=== PATIENT | female | born 1935 | race Caucasian/White ===

== ENCOUNTER 2021-01-31 07:51 | Inpatient (IN) | payer MEDICARE, OTHER ==
[~2021-01-31] VITALS: Ht 165.1 cm; Wt 58.9 kg
[~2021-01-31 07:51] MED LIST: MULT-208 PO
[2021-01-31] MEDS ORDERED: IV NORMAL SALINE 1,000ML 1,000 ML IV ONE (08:00)
[2021-01-31] MEDS ORDERED: ONDANSETRON PF 4 MG/2 ML VIAL. IVP ONE ×2 (08:30→10:00)
[2021-01-31] MEDS ORDERED: IOHEXOL 300 MG/ML 75 ML VIAL. IV ONE (08:30)
[2021-01-31] MEDS ORDERED: FAMOTIDINE 20 MG/2 ML VIAL IVP ONE (08:30)
[2021-01-31] MEDS ORDERED: CONTRAST GIVEN. MC PRN (08:30)
[2021-01-31 08:46] LABS: BASO % 0 % (0-3); EOS # 0.2 x10^3/uL (0.0-0.7); EOS % 4 % (0-3); HEMATOCRIT 46.1 % (36.0-47.0); HEMOGLOBIN 15.1 g/dL (12.0-15.5); LYMPH # 1.6 x10^3/uL (1.0-4.8); LYMPH % 31 % (24-48); MEAN CORPUSCULAR HEMOGLOBIN 30 pg (25-35); MEAN CORPUSCULAR HGB CONC 33 g/dL (31-37); MEAN CORPUSCULAR VOLUME 90 fL (79-100); MONO # 0.4 x10^3/uL (0.0-1.1); MONO % 8 % (0-9); NEUT # 2.8 x10^3uL (1.8-7.7); NEUT % 57 % (31-73); PLATELET COUNT 213 x10^3/uL (140-400); RED BLOOD COUNT 5.13 x10^6/uL (3.50-5.40); RED CELL DISTRIBUTION WIDTH 14.8 % (11.5-14.5)
[2021-01-31 08:47] LABS: ANION GAP 10 (6-14); BLOOD UREA NITROGEN 16 mg/dL (7-20); BUN/CREATININE RATIO 23 (6-20); CALCIUM 9.3 mg/dL (8.5-10.1); CARBON DIOXIDE 27 mmol/L (21-32); CHLORIDE 106 mmol/L (98-107); CREATININE 0.7 mg/dL (0.6-1.0); GFR 79.7; GLUCOSE 116 mg/dL (70-99); POTASSIUM 4.5 mmol/L (3.5-5.1); SODIUM 143 mmol/L (136-145)
[2021-01-31 09:01] LABS: ALBUMIN 3.5 g/dL (3.4-5.0); ALBUMIN/GLOBULIN RATIO 1.1 (1.0-1.7); ALK PHOS 48 U/L (46-116); ALT (SGPT) 19 U/L (14-59); AST (SGOT) 13 U/L (15-37); LIPASE 82 U/L (73-393); TOTAL BILIRUBIN 0.5 mg/dL (0.2-1.0); TOTAL PROTEIN 6.6 g/dL (6.4-8.2)
--- NOTE | 2021-01-31 09:37 | EKG ---
[address] [address] Test Date: 2021-01-31 Test Time: 08:30:07 Pat Name: JENIFFER MONTES Department: Room: Gender: F [employer] Site Manager: ALEXANDRA : [id number] Requested By: RAFFY CROOKS Order Number: [id number] Reading MD: Measurements Intervals Rumely Rate: 79 P: 51 ID: [id number] QRS: 7 QRSD: 138 T: 151 QT: 392 QTc: 451 Interpretive Statements SINUS RHYTHM CONSIDER WPW, TYPE B QRS(T) CONTOUR ABNORMALITY CONSIDER ANTEROSEPTAL MYOCARDIAL DAMAGE ST & T ABNORMALITY, CONSIDER LATERAL ISCHEMIA OR LEFT VENTRICULAR STRAIN T ABNORMALITY IN INFERIOR LEADS ABNORMAL ECG RI6.02 No previous ECG available for comparison
[2021-01-31 09:41] LABS: BACTERIA,URINE MANY /HPF (0-FEW); BILIRUBIN,URINE NEG (NEG); CLARITY,URINE HAZY; COLOR,URINE YELLOW; GLUCOSE,URINE NEG (NEG); NITRITE,URINE POS (NEG); RBC,URINE RARE /HPF (0-2); SQUAMOUS EPITHELIAL CELL,UR FEW /LPF; UROBILINOGEN,URINE 0.2 mg/dL (0.2 mg/dL); WBC,URINE OCC /HPF (0-4)
[2021-01-31] MEDS ORDERED: MECLIZINE 12.5 MG TABLET. PO ONE (09:45)
[2021-01-31] MEDS ORDERED: IV NORMAL SALINE 50ML 50 ML ONE (09:58)
[2021-01-31] MEDS ORDERED: cefTRIAXone SODIUM 1 GM VIAL ONE (09:59)
--- NOTE | 2021-01-31 10:27 | RAD ---
EXAM: CT Abdomen and Pelvis with IV contrast INDICATION: Reason: abdominal pain, N/V ONMI 300 75CC / Spl. Instructions: / History: TECHNIQUE: Multi-detector row CT images were acquired from the lung bases through the abdomen and pel vis with the use of IV contrast. Sagittal and coronal images were acquired from the transaxial data. All CT scans performed at this facility utilize dose optimization techniques as appropriate to the ex am, including the following: Automated exposure control and adjustment of the mA and/or KV according to patient size (this includes techniques or standardized protocols for targeted exams where dose is indication/reason for exam). IV CONTRAST: Administered ORAL CONTRAST: None COMPARISON: Abdomen CT with IV contrast 08/15/2014 FINDINGS: LOWER CHEST: Moderate hiatal hernia, with postsurgical changes near the diaphragmatic hiatus and in t he left upper quadrant abdomen. The hernia sac contains an air-fluid level.. LIVER: Unremarkable BILIARY SYSTEM: Gallbladder is unremarkable. Bile ducts are not dilated. PANCREAS: Unremarkable SPLEEN: Unremarkable ADRENALS: Unremarkable KIDNEYS & URETERS: Unremarkable BLADDER: Unremarkable REPRODUCTIVE ORGANS: Hysterectomy GASTROINTESTINAL: No findings of bowel obstruction or perforation and no findings of acute inflammati on. There is extensive colonic diverticulosis and a right inguinal hernia containing loop of bowel, l ikely small bowel. The appendix is normal. MESENTERY/PERITONEUM/RETROPERITONEUM: Unremarkable VASCULAR: Abdominal aorta ectasia to 2.2 cm, with scattered calcifications. 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 L3 chronic compression fra cture with approximately 50 percent loss of height and leftward convexity scoliotic curvature apex at L4-5 is noted. IMPRESSION: 1. There is a bowel containing right inguinal hernia and shows no findings of acute inflammation or o f upstream obstruction. 2. Moderate size hiatal hernia with an air-fluid level in the hernia sac. This could reflect delayed emptying of the hernia sac in the setting of stenosis of partial obstruction, versus some reflux. An upper GI series could be pursued in further evaluation if clinically warranted. No evidence of bowel perforation. Electronically signed by: Tamra Fernandez MD (01/31/2021 10:25 AM) [id number]
--- NOTE | 2021-01-31 10:59 | RAD ---
CT brain without contrast. HISTORY: Dizziness CT scan of brain was done without contrast although the patient had contrast earlier for CT of the ab domen pelvis. Sinuses are clear. A skull fracture is not identified. There is mild diffuse atrophy. V entricles are normal in size. There is no mass effect or shift of the midline. There is extensive dec reased density in the periventricular white matter from chronic microvascular changes. There are old lacunar infarcts in the basal ganglia on both sides. There is no intracranial hemorrhage or subdural hematoma. IMPRESSION: 1. Atrophy and chronic migraine white matter changes. 2. Old lacunar infarcts. 3. No intracranial hemorrhage or acute finding. PQRS Compliance Statement: One or more of the following individualized dose reduction techniques were utilized for this examinat ion: 1. Automated exposure control 2. Adjustment of the mA and/or kV according to patient size 3. Use of iterative reconstruction technique Electronically signed by: Luiz Isaac MD (01/31/2021 10:57 AM) [id number]
--- NOTE | 2021-01-31 11:05 | PHYS DOC ---
Past History Past Medical History: COPD, Dementia, Depression, GERD, Hypertension, TIA Past Medical History Limited secondary to dementia Past Surgical History: Appendectomy, Hysterectomy, Tonsillectomy Additional Past Surgical Histo: Hiatal hernia surgery Past Surgical History Limited secondary to dementia Alcohol Use: None Drug Use: None Social History Limited secondary to dementia General Adult EDM: Chief Complaint: NAUSEA/VOMITING/DIARRHEA HPI: HPI: 85-year-old female with past medical history of dementia presents via EMS with complaint of dizziness with associated nausea/vomiting and abdominal pain that started at 0630. Patient reportedly had been seen at [facility] in the emergency department x2 previously and was diagnosed with "dehydration". Denies any fever or chills. Denies known exposure to COVID-19. History obtained partially from patient's daughter. History of present illness limited secondary to dementia. Review of Systems: Review of Systems: Constitutional: Denies fever or chills; reports generalized malaise Respiratory: Denies cough or shortness of breath Cardiovascular: Denies chest pain or palpitations GI: Reports abdominal pain, nausea, and vomiting : Denies dysuria or hematuria Integument: Denies rash or skin lesions Neurologic: Denies headache; reports lightheadedness Review of systems limited secondary to dementia. Current Medications: Current Meds: Current Medications Medications (Trade) Dose Ordered Sig/Ingris Start Time Stop Time Status Last Admin Dose Admin Ceftriaxone Sodium 1 gm/ Sodium Chloride 50 ml @ 100 mls/hr 1X ONCE 01/31/21 10:00 01/31/21 10:29 DC 01/31/21 10:11 100 MLS/HR Ceftriaxone Sodium (Rocephin) 1 gm STK-MED ONCE 01/31/21 09:59 01/31/21 09:59 DC Famotidine (Pepcid Vial) 20 mg 1X ONCE 01/31/21 08:30 01/31/21 08:31 DC 01/31/21 08:30 20 MG Info (Do NOT chart on this entry -- for MONITORING) 1 each PRN DAILY PRN 01/31/21 08:30 02/02/21 08:29 Iohexol (Omnipaque 300 Mg/ml) 75 ml 1X ONCE 01/31/21 08:30 01/31/21 08:31 DC 01/31/21 09:07 75 ML Meclizine HCl (Antivert) 25 mg 1X ONCE 01/31/21 09:45 01/31/21 09:46 DC 01/31/21 09:39 25 MG Ondansetron HCl (Zofran) 4 mg 1X ONCE 01/31/21 10:00 01/31/21 10:01 DC 01/31/21 10:00 4 MG Sodium Chloride 50 ml @ As Directed STK-MED ONCE 01/31/21 09:58 01/31/21 09:59 DC Allergies: Allergies: Allergies Coded Allergies Type Severity Reaction Last Updated Verified Penicillins Allergy Unknown 08/15/14 Yes Physical Exam: PE: Constitutional: Well developed, well nourished, ill but non-toxic appearance HENT: Normocephalic, atraumatic Eyes: Conjunctiva normal, no discharge Neck: Normal range of motion, no tenderness, supple Lungs & Thorax: No respiratory distress, equal chest rise and fall Abdomen: Soft, no tenderness, no guarding/rebound tenderness Skin: Warm, dry, no erythema, no rash Back: No tenderness, no CVA tenderness Extremities: No tenderness, ROM intact, no edema Neurologic: Alert and oriented X name, normal motor function, normal sensory function, no focal deficits noted Psychologic: Affect normal, judgment abnormal Current Patient Data: Labs: Laboratory Tests Test 01/31/21 08:12 01/31/21 08:52 White Blood Count 5.0 x10^3/uL (4.0-11.0) Red Blood Count 5.13 x10^6/uL (3.50-5.40) Hemoglobin 15.1 g/dL (12.0-15.5) Hematocrit 46.1 % (36.0-47.0) Mean Corpuscular Volume 90 fL (79-100) Mean Corpuscular Hemoglobin 30 pg (25-35) Mean Corpuscular Hemoglobin Concent 33 g/dL (31-37) Red Cell Distribution Width 14.8 % (11.5-14.5) H Platelet Count 213 x10^3/uL (140-400) Neutrophils (%) (Auto) 57 % (31-73) Lymphocytes (%) (Auto) 31 % (24-48) Monocytes (%) (Auto) 8 % (0-9) Eosinophils (%) (Auto) 4 % (0-3) H Basophils (%) (Auto) 0 % (0-3) Neutrophils # (Auto) 2.8 x10^3uL (1.8-7.7) Lymphocytes # (Auto) 1.6 x10^3/uL (1.0-4.8) Monocytes # (Auto) 0.4 x10^3/uL (0.0-1.1) Eosinophils # (Auto) 0.2 x10^3/uL (0.0-0.7) Basophils # (Auto) 0.0 x10^3/uL (0.0-0.2) Sodium Level 143 mmol/L (136-145) Potassium Level 4.5 mmol/L (3.5-5.1) Chloride Level 106 mmol/L (98-107) Carbon Dioxide Level 27 mmol/L (21-32) Anion Gap 10 (6-14) Blood Urea Nitrogen 16 mg/dL (7-20) Creatinine 0.7 mg/dL (0.6-1.0) Estimated GFR (Cockcroft-Gault) 79.7 BUN/Creatinine Ratio 23 (6-20) H Glucose Level 116 mg/dL (70-99) H Calcium Level 9.3 mg/dL (8.5-10.1) Total Bilirubin 0.5 mg/dL (0.2-1.0) Aspartate Amino Transferase (AST) 13 U/L (15-37) L Alanine Aminotransferase (ALT) 19 U/L (14-59) Alkaline Phosphatase 48 U/L (46-116) Creatine Kinase 36 U/L (26-192) Creatine Kinase MB (Mass) 0.6 ng/mL (0.0-3.6) Creatine Kinase MB Relative Index % (0-4) Troponin I Quantitative < 0.017 ng/mL (0-0.055) Total Protein 6.6 g/dL (6.4-8.2) Albumin 3.5 g/dL (3.4-5.0) Albumin/Globulin Ratio 1.1 (1.0-1.7) Lipase 82 U/L (73-393) Urine Collection Type Unknown Urine Color Yellow Urine Clarity Hazy Urine pH 8.0 Urine Specific [place] 1.020 Urine Protein Neg (NEG-TRACE) Urine Glucose (UA) Neg mg/dL (NEG) Urine Ketones (Stick) Neg mg/dL (NEG) Urine Blood Small (NEG) Urine Nitrite Pos (NEG) Urine Bilirubin Neg (NEG) Urine Urobilinogen Dipstick 0.2 mg/dL (0.2 mg/dL) Urine Leukocyte Esterase Neg (NEG) Urine RBC Rare /HPF (0-2) Urine WBC Occ /HPF (0-4) Urine Squamous Epithelial Cells Few /LPF Urine Bacteria Many /HPF (0-FEW) Vital Signs: Vital Signs Date Time Temp Pulse Resp B/P (MAP) Pulse Ox O2 Delivery O2 Flow Rate FiO2 01/31/21 09:25 82 17 133/48 (76) 99 01/31/21 08:30 Nasal Cannula 2.0 01/31/21 07:52 98.2 EKG: EKG: @0830 NSR at 79bpm, wide complex QRS at 138ms, NO ST elevation, QT/QTc 392/451ms Radiology/Procedures: Radiology/Procedures: PROCEDURE: CT ABD PELV W/ IV CONTRST ONLY EXAM: CT Abdomen and Pelvis with IV contrast INDICATION: Reason: abdominal pain, N/V ONMI 300 75CC / Spl. Instructions: / History: TECHNIQUE: Multi-detector row CT images were acquired from the lung bases through the abdomen and pelvis with the use of IV contrast. Sagittal and coronal images were acquired from the transaxial data. All CT scans performed at this facility utilize dose optimization techniques as appropriate to the exam, including the following: Automated exposure control and adjustment of the mA and/or KV according to patient size (this includes techniques or standardized protocols for targeted exams where dose is indication/reason for exam). IV CONTRAST: Administered ORAL CONTRAST: None COMPARISON: Abdomen CT with IV contrast 08/15/2014 FINDINGS: LOWER CHEST: Moderate hiatal hernia, with postsurgical changes near the diaphrag matic hiatus and in the left upper quadrant abdomen. The hernia sac contains an air-fluid level.. LIVER: Unremarkable BILIARY SYSTEM: Gallbladder is unremarkable. Bile ducts are not dilated. PANCREAS: Unremarkable SPLEEN: Unremarkable ADRENALS: Unremarkable KIDNEYS & URETERS: Unremarkable BLADDER: Unremarkable REPRODUCTIVE ORGANS: Hysterectomy GASTROINTESTINAL: No findings of bowel obstruction or perforation and no findings of acute inflammation. There is extensive colonic diverticulosis and a right inguinal hernia containing loop of bowel, likely small bowel. The appendix is normal. MESENTERY/PERITONEUM/RETROPERITONEUM: Unremarkable VASCULAR: Abdominal aorta ectasia to 2.2 cm, with scattered calcifications. 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 L3 chronic compression fracture with approximately 50 percent loss of height and leftward convexity scoliotic curvature apex at L4-5 is noted. IMPRESSION: 1. There is a bowel containing right inguinal hernia and shows no findings of acute inflammation or of upstream obstruction. 2. Moderate size hiatal hernia with an air-fluid level in the hernia sac. This could reflect delayed emptying of the hernia sac in the setting of stenosis of partial obstruction, versus some reflux. An upper GI series could be pursued in further evaluation if clinically warranted. No evidence of bowel perforation. Electronically signed by: Tamra Fernandez MD (01/31/2021 10:25 AM) [id number] PROCEDURE: CT HEAD WO CONTRAST CT brain without contrast. HISTORY: Dizziness CT scan of brain was done without contrast although the patient had contrast earlier for CT of the abdomen pelvis. Sinuses are clear. A skull fracture is not identified. There is mild diffuse atrophy. Ventricles are normal in size. There is no mass effect or shift of the midline. There is extensive decreased density in the periventricular white matter from chronic microvascular changes. There are old lacunar infarcts in the basal ganglia on both sides. There is no intracranial hemorrhage or subdural hematoma. IMPRESSION: 1. Atrophy and chronic migraine white matter changes. 2. Old lacunar infarcts. 3. No intracranial hemorrhage or acute finding. PQRS Compliance Statement: One or more of the following individualized dose reduction techniques were utilized for this examination: 1. Automated exposure control 2. Adjustment of the mA and/or kV according to patient size 3. Use of iterative reconstruction technique Electronically signed by: Luiz Isaac MD (01/31/2021 10:57 AM) [id number] Heart Score: C/O Chest Pain: No Course & Med Decision Making: Course & Med Decision Making Pertinent Labs and Imaging studies reviewed. (See chart for details) Patient presents with report of dizziness with associated nausea and vomiting. Patient is a poor historian secondary to dementia. Daughter presented soon after patient's arrival to the ER. Abdomen nonperitoneal. This is reportedly patient's third emergency department for dizziness in the last week. Patient has a history of prior vertigo. No horizontal nystagmus appreciated. Labs obtained and posted to chart. UA nitrate positive. Empiric antibiotic initiated. CT head without acute process. CT abdomen/pelvis notes hiatal hernia which patient reports she has a history. Symptomatic treatment provided with interval improvement. IV fluid hydration given. Given age and patient's continued issues despite 2 prior ER visits, decision for patient to be admitted for further evaluation and treatment. Patient requiring admission for further evaluation and treatment. Discussed with Dr. Lopez (hospitalist) who is in agreement with admission. Discussed findings and plan with patient and her daughter, who acknowledge understanding and agreement. Bon Disclaimer: Bon Disclaimer: This electronic medical record was generated, in whole or in part, using a voice recognition dictation system. Departure Departure: Impression: Primary Impression: Dizziness Additional Impressions: Abnormal urinalysis Nausea & vomiting Qualified Codes: R11.2 - Nausea with vomiting, unspecified Disposition: ADMITTED INPT THIS HOSP Admitting Physician: Lalit Lopez Condition: STABLE Referrals: PCP,[facility] (PCP) RAFFY CROOKS DO Jan 31, 2021 11:05
[2021-01-31] MEDS ORDERED: ONDANSETRON PF 4 MG/2 ML VIAL. IVP PRN (11:15)
[2021-01-31] MEDS: IV NORMAL SALINE 1,000ML 1,000 ML IV SCH ×2 (11:15→21:06)
--- NOTE | 2021-01-31 12:15 | NUR ---
Pt arrived on unit, a/ox4, reports feeling better. Standby assistance to bathroom, reports no nausea, vomiting or diarrhea. Spoke with daughter, reviewed medications, daughter not happy with the no visiting policy.
--- NOTE | 2021-01-31 12:22 | HP ---
ADMIT DATE: 01/31/2021 ATTENDING PHYSICIAN: Dr. Hung. CHIEF COMPLAINT: Dizziness and nausea. HISTORY OF PRESENT ILLNESS: The patient is an 85-year-old female who has been to the ER several times this week. She complained of persistent nausea, vomiting, dizziness and evidence of urinary tract infection. She has classic symptoms of vertigo. She has had vertigo in the past. She states "I am fine if I lay completely still. The workup has been fairly negative so far. She is admitted then with symptomatic vertigo and incidentally an UTI. PAST MEDICAL HISTORY: Significant for COPD, dementia, depression, gastroesophageal reflux disease, essential hypertension, TIAs. PAST SURGICAL HISTORY: Includes appendectomy, hysterectomy and tonsillectomy. ALLERGIES: SHE HAS ALLERGIES TO PENICILLIN, WHICH CAUSES A RASH. MEDICATIONS: She received some Rocephin in the ED, I looked it at her home meds and she is not on any prescription meds for blood pressure. FAMILY HISTORY: Unobtainable due to the patient's memory. SOCIAL HISTORY: She is a smoker in the past. REVIEW OF SYSTEMS: Unremarkable for any recent COVID exposure, fevers or chills. All other systems reviewed and turned to be negative. PHYSICAL EXAMINATION: GENERAL: When I saw her, this is a pleasant, but confused elderly female. INITIAL VITAL SIGNS: Showed a blood pressure of 126/55 mmHg, pulse is 82 and regular, temperature 98.3 degrees Fahrenheit, and her oxygen saturation were 99% on 2 liters by nasal cannula. HEENT: Head is without trauma. Pupils are reactive. Sclerae are nonicteric. There is no nystagmus. NECK: Supple, no bruits or stridor. LUNGS: Otherwise clear. CARDIOVASCULAR: Showed regular heart tones. No gallops. ABDOMEN: Soft, no guarding or rebound tenderness. Bowel sounds are hypoactive. EXTREMITIES: Showed no cyanosis or edema. NEUROLOGIC: Focally intact. Speech is fluent. No deficit. She is pleasantly confused. SKIN: Warm and dry. PERTINENT LABORATORY STUDIES: Her hemoglobin is 15.1 g/dL with white count of 5000. Chemistry panel, normal electrolytes, sodium 143 mEq/L, potassium 4.5 mEq, creatinine 0.7 mg/dL, nonfasting blood sugar is 116 mg/dL. Transaminases and liver panel all within normal range. Troponin level was nonischemic. The obligatory CT of the head along with abdomen and pelvis were done. The head CT showed significant atrophy, chronic white matter changes, old lacunar infarcts. There is no acute hemorrhage or stroke. CT of the abdomen was done. Once again, no acute pathology identified. ASSESSMENT: 1. An 85-year-old female with symptomatic vertigo. 2. Underlying dementia. 3. Probable early urinary tract infection. 4. Gastroesophageal reflux disease. 5. Underlying dementia. 6. Chronic obstructive pulmonary disease by history. 7. Essential hypertension, currently normotensive. PLAN: 1. Admit to the inpatient unit. 2. Bed rest with bathroom privileges. 3. Empiric Rocephin, pending urine cultures. 4. Meclizine scheduled. 5. Low dose of Valium. 6. Diet as tolerated. 7. Nausea control. 8. I should discussed with the daughter disposition plans whether she is able to manage her mom at home. NAHUM HUNG MD DR: AMA/karoline JOB#: [id number] / [id number]
[2021-01-31 13:30] VITALS: BP 133/66
[2021-01-31] MEDS: diazePAM 2 MG TABLET. PO SCH ×2 (14:00→21:00)
[2021-01-31] MEDS ORDERED: MEMA10TA PO (14:57)
[2021-01-31] MEDS ORDERED: AMLO2.5T5 PO (14:57)
[2021-01-31] MEDS ORDERED: BUPR300T92 PO (14:57)
[2021-01-31] MEDS ORDERED: [UNRECOGNIZED DRUG - OTHER] (14:57)
[2021-01-31] MEDS ORDERED: ONDA4TAB7 PO (14:57)
[2021-01-31] MEDS ORDERED: OMEP20TA63 PO (14:57)
[2021-01-31] MEDS: MECLIZINE 12.5 MG TABLET. PO SCH ×2 (15:26→21:00)
[2021-01-31 15:40] VITALS: BP 120/70
[2021-01-31 19:00] VITALS: BP 107/71
[2021-01-31] MEDS ORDERED: PROCHLORPERAZINE 10 MG/2 ML VIAL. IV PRN (19:45)
[2021-01-31 23:28] VITALS: BP 115/75
[2021-02-01 05:22] VITALS: BP 130/80
[2021-02-01] MEDS: IV NORMAL SALINE 1,000ML 1,000 ML IV SCH (07:15)
[2021-02-01] MEDS ORDERED: ONDANSETRON ODT 4 MG TAB.RAPDIS PO PRN (08:45)
--- NOTE | 2021-02-01 09:00 | PN ---
DATE: 02/01/2021 ATTENDING PHYSICIAN: Dr. Hung. SUBJECTIVE: Pleasantly confused. Nausea has improved. Still very weak. Dizziness, improved. OBJECTIVE FINDINGS: VITAL SIGNS: Blood pressure this morning is 130/80 mmHg, pulse is 76 and regular, oxygen saturation 94% on 2 liters by nasal cannula, temperature is 97.5 degrees Fahrenheit. HEENT: Head is without trauma. There is no nystagmus. Pupils are reactive. Sclerae are nonicteric. The oropharynx is clear. NECK: Supple, no bruits. LUNGS: Good breath sounds. CARDIOVASCULAR: Showed regular heart tones. No gallops. ABDOMEN: Soft. EXTREMITIES: Without edema. NEUROLOGIC: Still very dizzy and unsteady. She needs some assistance with ambulation. SKIN: Warm and dry. ASSESSMENT: 1. An 85-year-old female with symptomatic vertigo, improved. 2. Underlying dementia. 3. Urinary tract infection, treated. 4. Gastroesophageal reflux disease. 5. Chronic obstructive pulmonary disease. 6. Essential hypertension. PLAN: 1. Continue scheduled meclizine and diazepam. 2. Physical therapy recommendation. 3. Scheduled meclizine. 4. Diet as tolerated. 5. Discharge planning for tomorrow. NAHUM HUNG MD DR: AMA/karoline JOB#: [id number] / [id number]
[2021-02-01] MEDS: diazePAM 2 MG TABLET. PO SCH ×3 (09:12→20:50)
[2021-02-01] MEDS: MECLIZINE 12.5 MG TABLET. PO SCH ×3 (09:12→20:50)
[2021-02-01] MEDS: CALCIUM CARBONATE 500 MG TABLET PO SCH (09:12)
[2021-02-01] MEDS: MULTIVITAMIN with MINERAL TABLET. PO SCH (09:12)
[2021-02-01] MEDS: buPROPion XL 300 MG TAB.ER.24H. PO SCH (09:13)
[2021-02-01] MEDS: MEMANTINE 10 MG TABLET. PO SCH (09:13)
[2021-02-01] MEDS: amLODIPine BESYLATE 2.5 MG TABLET PO SCH (09:13)
[2021-02-01] MEDS: PANTOPRAZOLE 40 MG TABLET. PO SCH (09:13)
[2021-02-01 11:18] VITALS: BP 104/63
[2021-02-01 15:32] VITALS: BP 114/72
--- NOTE | 2021-02-01 15:39 | NUR ---
Pt does not report further Nausea and Vomiting and resting comfortably
[2021-02-01 20:10] VITALS: BP 103/68
[2021-02-01 23:11] VITALS: BP 122/72
[2021-02-02 05:29] VITALS: BP 108/68
[2021-02-02] MEDS: PANTOPRAZOLE 40 MG TABLET. PO SCH (07:35)
[2021-02-02] MEDS: buPROPion XL 300 MG TAB.ER.24H. PO SCH (07:35)
[2021-02-02] MEDS: MULTIVITAMIN with MINERAL TABLET. PO SCH (09:18)
[2021-02-02] MEDS: CALCIUM CARBONATE 500 MG TABLET PO SCH (09:18)
[2021-02-02] MEDS: MECLIZINE 12.5 MG TABLET. PO SCH (09:18)
[2021-02-02] MEDS: diazePAM 2 MG TABLET. PO SCH (09:18)
[2021-02-02] MEDS: MEMANTINE 10 MG TABLET. PO SCH (09:18)
[2021-02-02] MEDS: amLODIPine BESYLATE 2.5 MG TABLET PO SCH (09:19)
--- NOTE | 2021-02-02 09:57 | DS ---
DATE OF DISCHARGE: 02/02/2021 ATTENDING PHYSICIAN: Dr. Hung. FINAL DISCHARGE DIAGNOSES: 1. Acute vertigo, resolved. 2. Nausea and vomiting, resolved. 3. Urinary tract infection with multi resistant Escherichia coli. 4. Chronic obstructive pulmonary disease, oxygen dependent. 5. Gastroesophageal reflux disease. 6. Chronic obstructive pulmonary disease. 7. Essential hypertension. 8. Underlying dementia. HISTORY AND PHYSICAL: The patient is a pleasant 85-year-old female with multiple medical issues and underlying dementia. She has been cared for at home by 2 daughters, 1 daughter is here from out of town to visit. They are planning to continue 24-hour daycare at home rather than a higher level of care. She presented with acute vertigo, nausea, vomiting positional in nature. She was admitted for further treatment and evaluation. This has been intractable and refractory to outpatient care. PHYSICAL EXAMINATION: Please see the dictated note. PERTINENT LABORATORY AND X-RAY STUDIES: Admission hemoglobin was 15.1 g/dL with a white count of 5000. Electrolytes all within normal range. Nonfasting blood sugar 116. Three sets of cardiac enzymes negative for coronary ischemia. Transaminases, BUN and liver panel were all within normal range. Urine cultures did grow out greater than 100,000 colonies of E. coli, which is multi resistant, less sensitive to third generation cephalosporins, resistant to quinolones, but sensitive to p.o. trimethoprim sulfa. COURSE IN THE HOSPITAL: The patient was admitted, placed on strict bed rest with bathroom activities. Physical therapy consultation entertained. She received 3 full days of intravenous Rocephin, switched to p.o. Bactrim based on the sensitivities. Her dizziness resolved. I offered a higher level of care to the family, they wanted to take her home and care for her. She already has supplemental oxygen at home. Therefore, on the 3rd hospital day, the patient was discharged home with the following meds: Meclizine 25 mg p.o. t.i.d. for 5 more days, diazepam 2 mg p.o. t.i.d. for 5 more days and stop and finally Bactrim-DS 1 p.o. b.i.d. for 7 days. In addition, her other home meds are unchanged. She should continue her amlodipine, BuSpar, Namenda, multivitamin, omeprazole, and oyster shell calcium as prescribed. She will follow up with her PCP as scheduled. She was discharged then from our hospital in stable condition with explicit instructions and followup care. TOTAL DISCHARGE TIME SPENT: 39 minutes. NAHUM HUNG MD DR: AMA/karoline JOB#: [id number] / [id number]
[2021-02-02 10:21] VITALS: BP 119/78
--- NOTE | 2021-02-02 10:50 | NUR ---
pt discharged at 1047 via wheelchair accompanied by family member. verbal and print instructions given to pt and family member with verbal statement of understanding. Prescriptions returned to pt from pharmacy
--- NOTE | 2021-02-02 17:26 | NUR ---
Pt requested records faxed to primary care doctor. records request form completed and given to nursing music supervisor .
== END 2021-02-02 10:47 | disposition home or self-care (01) | DRG 690 ==
LOC: ER 07:51 → 1 SOUTH 11:01
PROVIDERS: ADMIT Hospitalist; ATTEND Hospitalist
DX: N39.0 Urinary tract infection, site not specified (principal); E86.0 Dehydration; R42 Dizziness and giddiness; B96.20 Unspecified Escherichia coli [E. coli] as the cause of diseases classified elsewhere; F03.90 Unspecified dementia, unspecified severity, without behavioral disturbance, psychotic disturbance, mood disturbance, and anxiety; G43.909 Migraine, unspecified, not intractable, without status migrainosus; I10 Essential (primary) hypertension; J44.9 Chronic obstructive pulmonary disease, unspecified; K21.9 Gastro-esophageal reflux disease without esophagitis; K40.90 Unilateral inguinal hernia, without obstruction or gangrene, not specified as recurrent; K44.9 Diaphragmatic hernia without obstruction or gangrene; Z86.73 Personal history of transient ischemic attack (TIA), and cerebral infarction without residual deficits; Z87.891 Personal history of nicotine dependence; Z90.49 Acquired absence of other specified parts of digestive tract; Z90.710 Acquired absence of both cervix and uterus; Z99.81 Dependence on supplemental oxygen; F32.9 Major depressive disorder, single episode, unspecified; Z88.0 Allergy status to penicillin
CPT/HCPCS: 36415; 70450; 74177; 80053; 81001; 82553; 83690; 84484; 85025; 87077; 87086; 87186; 93005; 96361; 96365; 96375; 96376; J0696; J0780; J2405; J3490; Q0162; Q9967; 97116; 97530; 99285-25; J7030

== ENCOUNTER 2021-02-12 12:37 | Emergency (ER) | payer MEDICARE ==
[~2021-02-12] VITALS: Ht 160 cm; Wt 55.5 kg
[~2021-02-12 12:37] MED LIST changes: +AMLO2.5T5 PO; +BUPR300T92 PO; +MEMA10TA PO; +OMEP20TA63 PO; +ONDA4TAB7 PO; +[UNRECOGNIZED DRUG - OTHER]
--- NOTE | 2021-02-12 12:41 | PHYS DOC ---
Past History Past Medical History: COPD, Dementia, Depression, GERD, Hypertension, TIA Past Surgical History: Appendectomy, Hysterectomy, Tonsillectomy Additional Past Surgical Histo: Hiatal hernia surgery Alcohol Use: None Drug Use: None Adult General Chief Complaint Chief Complaint: NAUSEA/VOMITING/[facility] HPI Patient is an 85-year-old female who presents via EMS for nausea. Onset was approximately 1 hour ago. Patient reports she has been at her baseline health, went to [facility] this morning and had a sausage Egg McMuffin. Proximately 6 hours later, around 1200 hrs., patient reportedly started feeling nauseous while performing physical therapy at home. This concern healthcare providers and daughter who is with patient prompting them to call EMS. Patient took an unknown dose of Zofran ODT prior to transport via EMS and in route, reported her symptoms had resolved. She presents to our facility asymptomatic and hemodynamically stable. She is a O x3. She is declining IV access at this time Review of Systems Review of Systems Fourteen body systems of review of systems have been reviewed. See HPI for pertinent positives and negative responses, other lowery all other systems are negative, non-pertinent or non-contributory Allergies Allergies Allergies Coded Allergies Type Severity Reaction Last Updated Verified I S O L A T I O N *CONTACT* Allergy Unknown 02/05/21 Yes Penicillins Allergy Unknown 08/15/14 Yes Physical Exam Physical Exam Constitutional: Well developed, well nourished, no acute distress, non-toxic appearance. HENT: Normocephalic, atraumatic, bilateral external ears normal, oropharynx dry, no oral exudates, nose normal. Eyes: PERRLA, EOMI, conjunctiva normal, no discharge. Neck: Normal range of motion, no tenderness, supple, no stridor. Cardiovascular: Heart rate regular, sinus rhythm, no murmurs rubs or gallops Lungs & Thorax: Bilateral breath sounds clear to auscultation Abdomen: Bowel sounds normal, soft, no tenderness, no masses, no pulsatile masses. Nonsurgical abdomen, no peritoneal signs Skin: Warm, dry, no erythema, no rash. Back: No tenderness, no CVA tenderness. Extremities: No tenderness, no cyanosis, no clubbing, ROM intact, no edema. Neurologic: Alert and oriented X 3, grossly normal motor & sensory function, no focal deficits noted. Psychologic: Affect normal, judgement normal, mood normal. Current Patient Data Vital Signs Vital Signs Date Time Temp Pulse Resp B/P (MAP) Pulse Ox O2 Delivery O2 Flow Rate FiO2 02/12/21 12:43 97.8 94 16 138/83 (101) 98 Nasal Cannula 2.0 Vital Signs Date Time Temp Pulse Resp B/P (MAP) Pulse Ox O2 Delivery O2 Flow Rate FiO2 02/12/21 14:10 88 18 122/64 (83) 100 Nasal Cannula 2.0 02/12/21 12:43 97.8 EKG EKG EKG ordered and interpreted by myself at 1315 hrs. as sinus rhythm 88 bpm, prolonged QRS at 134, left axis deviation, T wave inversions noted in lead I, V5 and V6 with left bundle branch block present. Negative SGARBOSSA, NO STEMI Radiology/Procedures Radiology/Procedures [] Heart Score C/O Chest Pain: No HEART Score for Chest Pain: HEART Score for Chest Pain Response (Comments) Value History Slighlty/Non-Suspicious 0 ECG Normal 0 Age > 65 2 Risk Factors >3 Risk Factors or Hx CAD 2 Total 4 Risk Factors: Risk Factors: DM, Current or recent (<one month) smoker, HTN, HLP, family history of CAD, obesity. Risk Scores: Risk Factors: DM, Current or recent (<one month) smoker, HTN, HLP, family history of CAD, obesity. Course & Med Decision Making Course & Med Decision Making Hemodynamically stable patient with HPI nausea with activity after concerning PO ingestion for breakfast. PE unremarkable, patient asymptomatic on arrival to ER. EKG and POC unremarkable. Patient refusing lab stick Patient remained asymptomatic throughout visit requesting and tolerating PO intake. Daughter arrived and is anxious about patient's baseline health. She has good family and home health support I reviewed potential for further diagnostic workup in ER but patient refusing, she is asymptomatic, well-appearing tolerating PO intake and has good access to care. She requests discharge home with close PCP follow-up Patient has antiemetics for use at home. Strict return precautions discussed with good understanding. Dragon Disclaimer Dragon Disclaimer This electronic medical record was generated, in whole or in part, using a voice recognition dictation system. Departure Departure: Impression: Primary Impression: Nausea Disposition: HOME / SELF CARE / HOMELESS Condition: STABLE Referrals: PCP,NO (PCP) Patient Instructions: Nausea, Adult Additional Instructions: You were seen for nausea. You most likely have a viral illness which should resolve in the next few days to a week. As discussed, please contact your primary care physician today to review ER visit. If any concerning signs or symptoms present prior to outpatient follow-up please do not hesitate to come back for repeat evaluation. You should return to the ED if you develop abdominal pain, fever > 100.3, black/bloody stools, black/bloody vomiting, cannot keep water down, or any other new or concerning symptoms. Scripts Ondansetron (ONDANSETRON ODT) 4 Mg Tab.rapdis 1 TAB PO PRN Q6-8HRS for NAUSEA, #16 TAB Prov: RADHA RALPH DO 02/12/21 RADHA RALPH DO Feb 12, 2021 12:41
--- NOTE | 2021-02-12 13:25 | EKG ---
[address] [address] Test Date: 2021-02-12 Test Time: 13:09:32 Pat Name: JENIFFER MONTES Department: Room: Gender: F Emergency Medicine: : 1935 Requested By: RADHA RALPH Order Number: [id number] Reading MD: Measurements Intervals [place] Rate: 88 P: 0 IA: 120 QRS: -3 QRSD: 134 T: 156 QT: 380 QTc: 463 Interpretive Statements SINUS RHYTHM LEFTWARD AXIS LEFT BUNDLE BRANCH BLOCK ABNORMAL ECG RI6.02 No previous ECG available for comparison
[2021-02-12] MEDS ORDERED: ONDA4TAB12 PO (14:07)
[2021-02-12 14:10] VITALS: BP 122/64
== END 2021-02-12 14:31 | disposition home or self-care (01) ==
LOC: ER 12:37
DX: R11.0 Nausea (principal); J44.9 Chronic obstructive pulmonary disease, unspecified; K21.9 Gastro-esophageal reflux disease without esophagitis; I10 Essential (primary) hypertension; F03.90 Unspecified dementia, unspecified severity, without behavioral disturbance, psychotic disturbance, mood disturbance, and anxiety; Z86.73 Personal history of transient ischemic attack (TIA), and cerebral infarction without residual deficits; Z90.89 Acquired absence of other organs; Z90.710 Acquired absence of both cervix and uterus; Z98.890 Other specified postprocedural states; Z88.0 Allergy status to penicillin; Z91.041 Radiographic dye allergy status
CPT/HCPCS: 82947; 93005; 99283; 99284

== ENCOUNTER 2021-05-15 17:53 | Emergency (ER) | payer MEDICARE, OTHER ==
[~2021-05-15] VITALS: Ht 160 cm; Wt 55.5 kg
[~2021-05-15 17:53] MED LIST changes: +ONDA4TAB12 PO
[2021-05-15 18:55] VITALS: BP 117/56
[2021-05-15] MEDS ORDERED: IV NORMAL SALINE 1,000ML 1,000 ML IV ONE (20:00)
[2021-05-15 20:53] LABS: BASO % 0 % (0-3); EOS # 0.1 x10^3/uL (0.0-0.7); EOS % 1 % (0-3); HEMATOCRIT 45.1 % (36.0-47.0); LYMPH # 1.6 x10^3/uL (1.0-4.8); LYMPH % 12 % (24-48); MEAN CORPUSCULAR HEMOGLOBIN 31 pg (25-35); MEAN CORPUSCULAR HGB CONC 33 g/dL (31-37); MEAN CORPUSCULAR VOLUME 92 fL (79-100); MONO # 1.2 x10^3/uL (0.0-1.1); MONO % 9 % (0-9); NEUT # 10.1 x10^3uL (1.8-7.7); NEUT % 78 % (31-73); PLATELET COUNT 214 x10^3/uL (140-400); RED BLOOD COUNT 4.91 x10^6/uL (3.50-5.40); RED CELL DISTRIBUTION WIDTH 13.5 % (11.5-14.5)
[2021-05-15 21:02] LABS: CREATININE 0.8 mg/dL (0.6-1.0); GFR 68.3; POTASSIUM 4.3 mmol/L (3.5-5.1)
[2021-05-15 21:09] LABS: ALBUMIN 3.6 g/dL (3.4-5.0); ALBUMIN/GLOBULIN RATIO 1.4 (1.0-1.7); MAGNESIUM 2.1 mg/dL (1.8-2.4); TOTAL BILIRUBIN 1.1 mg/dL (0.2-1.0); TOTAL PROTEIN 6.2 g/dL (6.4-8.2)
[2021-05-15 21:58] LABS: BACTERIA,URINE 0 /HPF (0-FEW); BILIRUBIN,URINE NEG (NEG); CLARITY,URINE CLEAR; COLOR,URINE YELLOW; GLUCOSE,URINE NEG (NEG); NITRITE,URINE NEG (NEG); RBC,URINE RARE /HPF (0-2); SQUAMOUS EPITHELIAL CELL,UR OCC /LPF; WBC,URINE RARE /HPF (0-4)
--- NOTE | 2021-05-15 22:21 | PHYS DOC ---
Past History Past Medical History: COPD, Dementia, Depression, GERD, Hypertension, TIA Past Surgical History: Appendectomy, Hysterectomy, Tonsillectomy Additional Past Surgical Histo: Hiatal hernia surgery Alcohol Use: None Drug Use: None General Adult EDM: Chief Complaint: URINARY RETENTION HPI: HPI: Patient is a [age] year old [sex] who presents with [] Review of Systems: Review of Systems: Constitutional: Denies fever or chills Eyes: Denies change in visual acuity HENT: Denies nasal congestion or sore throat Respiratory: Denies cough or shortness of breath Cardiovascular: Denies chest pain or edema GI: Denies abdominal pain, nausea, vomiting, bloody stools or diarrhea : Denies dysuria Musculoskeletal: Denies back pain or joint pain Integument: Denies rash Neurologic: Denies headache, focal weakness or sensory changes Endocrine: Denies polyuria or polydipsia Lymphatic: Denies swollen glands Psychiatric: Denies depression or anxiety Current Medications: Current Meds: Current Medications Medications (Trade) Dose Ordered Sig/Ingris Start Time Stop Time Status Last Admin Dose Admin Sodium Chloride 1,000 ml @ 1,000 mls/hr 1X ONCE 05/15/21 20:00 05/15/21 20:59 DC 05/15/21 20:36 1,000 MLS/HR Allergies: Allergies: Allergies Coded Allergies Type Severity Reaction Last Updated Verified I S O L A T I O N *CONTACT* Allergy Unknown 02/05/21 Yes Penicillins Allergy Unknown 08/15/14 Yes Physical Exam: PE: Constitutional: Well developed, well nourished, no acute distress, non-toxic appearance. [] HENT: Normocephalic, atraumatic, bilateral external ears normal, oropharynx moist, no oral exudates, nose normal. [] Eyes: PERRLA, EOMI, conjunctiva normal, no discharge. [] Neck: Normal range of motion, no tenderness, supple, no stridor. [] Cardiovascular:Heart rate regular rhythm, no murmur [] Lungs & Thorax: Bilateral breath sounds clear to auscultation [] Abdomen: Bowel sounds normal, soft, no tenderness, no masses, no pulsatile masses. [] Skin: Warm, dry, no erythema, no rash. [] Back: No tenderness, no CVA tenderness. [] Extremities: No tenderness, no cyanosis, no clubbing, ROM intact, no edema. [] Neurologic: Alert and oriented X 3, normal motor function, normal sensory function, no focal deficits noted. [] Psychologic: Affect normal, judgement normal, mood normal. [] Current Patient Data: Labs: Laboratory Tests Test 05/15/21 20:35 05/15/21 21:30 White Blood Count 13.0 x10^3/uL (4.0-11.0) H Red Blood Count 4.91 x10^6/uL (3.50-5.40) Hemoglobin 15.0 g/dL (12.0-15.5) Hematocrit 45.1 % (36.0-47.0) Mean Corpuscular Volume 92 fL (79-100) Mean Corpuscular Hemoglobin 31 pg (25-35) Mean Corpuscular Hemoglobin Concent 33 g/dL (31-37) Red Cell Distribution Width 13.5 % (11.5-14.5) Platelet Count 214 x10^3/uL (140-400) Neutrophils (%) (Auto) 78 % (31-73) H Lymphocytes (%) (Auto) 12 % (24-48) L Monocytes (%) (Auto) 9 % (0-9) Eosinophils (%) (Auto) 1 % (0-3) Basophils (%) (Auto) 0 % (0-3) Neutrophils # (Auto) 10.1 x10^3uL (1.8-7.7) H Lymphocytes # (Auto) 1.6 x10^3/uL (1.0-4.8) Monocytes # (Auto) 1.2 x10^3/uL (0.0-1.1) H Eosinophils # (Auto) 0.1 x10^3/uL (0.0-0.7) Basophils # (Auto) 0.0 x10^3/uL (0.0-0.2) Sodium Level 143 mmol/L (136-145) Potassium Level 4.3 mmol/L (3.5-5.1) Chloride Level 104 mmol/L (98-107) Carbon Dioxide Level 31 mmol/L (21-32) Anion Gap 8 (6-14) Blood Urea Nitrogen 19 mg/dL (7-20) Creatinine 0.8 mg/dL (0.6-1.0) Estimated GFR (Cockcroft-Gault) 68.3 BUN/Creatinine Ratio 24 (6-20) H Glucose Level 88 mg/dL (70-99) Lactic Acid Level 1.3 mmol/L (0.4-2.0) Calcium Level 9.0 mg/dL (8.5-10.1) Magnesium Level 2.1 mg/dL (1.8-2.4) Total Bilirubin 1.1 mg/dL (0.2-1.0) H Aspartate Amino Transferase (AST) 11 U/L (15-37) L Alanine Aminotransferase (ALT) 16 U/L (14-59) Alkaline Phosphatase 54 U/L (46-116) Creatine Kinase 36 U/L (26-192) Total Protein 6.2 g/dL (6.4-8.2) L Albumin 3.6 g/dL (3.4-5.0) Albumin/Globulin Ratio 1.4 (1.0-1.7) Urine Collection Type U cath Urine Color Yellow Urine Clarity Clear Urine pH 6.0 Urine Specific [place] 1.020 Urine Protein Neg (NEG-TRACE) Urine Glucose (UA) Neg mg/dL (NEG) Urine Ketones (Stick) 80 mg/dL (NEG) Urine Blood Neg (NEG) Urine Nitrite Neg (NEG) Urine Bilirubin Neg (NEG) Urine Urobilinogen Dipstick 1.0 mg/dL (0.2 mg/dL) Urine Leukocyte Esterase Neg (NEG) Urine RBC Rare /HPF (0-2) Urine WBC Rare /HPF (0-4) Urine Squamous Epithelial Cells Occ /LPF Urine Bacteria 0 /HPF (0-FEW) Urine Mucus Slight /LPF Vital Signs: Vital Signs Date Time Temp Pulse Resp B/P (MAP) Pulse Ox O2 Delivery O2 Flow Rate FiO2 05/15/21 18:55 99.1 97 16 117/56 89 EKG: EKG: [] Radiology/Procedures: Radiology/Procedures: [] Heart Score: Risk Factors: Risk Factors: DM, Current or recent (<one month) smoker, HTN, HLP, family history of CAD, obesity. Risk Scores: Score 0 - 3: 2.5% MACE over next 6 weeks - Discharge Home Score 4 - 6: 20.3% MACE over next 6 weeks - Admit for Clinical Observation Score 7 - 10: 72.7% MACE over next 6 weeks - Early Invasive Strategies Course & Med Decision Making: Course & Med Decision Making Pertinent Labs and Imaging studies reviewed. (See chart for details) [] Dragon Disclaimer: Dragon Disclaimer: This electronic medical record was generated, in whole or in part, using a voice recognition dictation system. Departure Departure: Impression: Primary Impression: Dehydration Additional Impression: Nausea Disposition: HOME / SELF CARE / HOMELESS Condition: STABLE Referrals: [facility] (PCP) Patient Instructions: Dehydration, Elderly, [id number], Nausea, Adult, [id number] Additional Instructions: Continue previously prescribed nausea medication. Continue previously prescribed antibiotic as prescribed. RAFFY CROOKS DO May 15, 2021 22:20
== END 2021-05-15 22:37 ==
LOC: ER 17:53
DX: E86.0 Dehydration (principal); R11.0 Nausea; J44.9 Chronic obstructive pulmonary disease, unspecified; F03.90 Unspecified dementia, unspecified severity, without behavioral disturbance, psychotic disturbance, mood disturbance, and anxiety; F32.9 Major depressive disorder, single episode, unspecified; K21.9 Gastro-esophageal reflux disease without esophagitis; I10 Essential (primary) hypertension; Z86.73 Personal history of transient ischemic attack (TIA), and cerebral infarction without residual deficits; Z90.89 Acquired absence of other organs; Z90.710 Acquired absence of both cervix and uterus; Z88.0 Allergy status to penicillin; Z88.8 Allergy status to other drugs, medicaments and biological substances
CPT/HCPCS: 36415; 80053; 81001; 82550; 83605; 83735; 85025; 96360; 96361; 99283; J7030; P9612